=== PATIENT | male | born 1950 | race Caucasian/White ===

== ENCOUNTER 2018-06-18 07:55 | Day surgery (SDC) | payer OTHER ==
[2018-06-14 13:00] VITALS: BP 149/79
[2018-06-14 13:03] LABS: BASOPHILS % (AUTO) 1.2 % (0.0-5.0); EOSINOPHILS % (AUTO) 1.3 % (0.0-8.0); HEMATOCRIT 42.6 % (42-54); LYMPHOCYTES % (AUTO) 31.2 % (21.0-51.0); MEAN CORPUSCULAR HEMOGLOBIN 31.1 pg (27.0-33.0); MEAN CORPUSCULAR HGB CONC 33.9 g/dL (32.0-36.0); MONOCYTES % (AUTO) 8.4 % (3.0-13.0); NEUTROPHILS % (AUTO) 57.9 % (40.0-77.0); NUCLEATED RED BLOOD CELLS 0.1 % (0.0-0.19); PLATELET COUNT (AUTO) 213 K/uL (130-400); RED BLOOD CELL COUNT(AUTO) 4.63 MIL/uL (4.50-6.20); RED CELL DISTRIBUTION WIDTH 13.4 % (11.0-15.5)
[2018-06-14 13:11] LABS: APPEARANCE,URINE Clear (CLEAR); BILIRUBIN,URINE Negative (NEGATIVE); COLOR,URINE Yellow (YELLOW); GLUCOSE, URINE (UA) Negative (NEGATIVE); KETONES,URINE Negative (NEGATIVE); LEUKOCYTE ESTERASE ,URINE Negative (NEGATIVE); NITRATE,URINE Negative (NEGATIVE); OCCULT BLOOD,URINE Negative (NEGATIVE); PH,URINE 5.5 (5.0-8.0); PROTEIN,URINE Negative (NEGATIVE); UROBILINOGEN,URINE 0.2 mg/dL (0.2-1.0)
[2018-06-14 13:14] LABS: CREATININE 1.5 mg/dL (0.5-1.5); POTASSIUM 4.3 mmol/L (3.5-5.1)
[2018-06-14 13:18] LABS: INR 1.02 (0.85-1.15); PARTIAL THROMBOPLASTIN TIME 29.7 SEC (26.3-35.5); PROTHROMBIN TIME 10.7 SEC (9.6-11.6)
[~2018-06-18] VITALS: Ht 172.7 cm; Wt 123.8 kg
[2018-06-18] VITALS (10 sets, daily range): BP systolic 94–144; BP diastolic 48–80
[~2018-06-18 07:55] MED LIST: AEC81 PO; ALPR0.255 PO; ESCI10TA54 PO; EZET1TAB21 PO; LEVO100T12 PO; METO-391 PO; OLME40TA18 PO
[2018-06-18] MEDS ORDERED: SODIUM CHLORIDE 0.9% 1000ML 1,000 ML IV ONE (08:32)
[2018-06-18] MEDS ORDERED: IOHEXOL-350 50ML VIAL IV ONE (10:15)
[2018-06-18] MEDS ORDERED: HEPARIN SODIUM 1000UNIT/ML 10ML VIAL ONE (10:15)
[2018-06-18] MEDS ORDERED: LIDOCAINE HCL-MPF 2% 5ML VIAL ONE (10:15)
[2018-06-18] MEDS ORDERED: NITROGLYCERIN 5 MG/ML 10 ML VIAL IV ONE (10:15)
[2018-06-18] MEDS ORDERED: SODIUM BICARB 50MEQ 50ML VIAL ONE (10:15)
[2018-06-18] MEDS ORDERED: IOHEXOL 350 MG/ML 100ML INFUS..BTL IV ONE ×2 (10:16→10:20)
[2018-06-18] MEDS ORDERED: MEPERIDINE-PF 25 MG/ML SYG ONE (10:39)
[2018-06-18] MEDS ORDERED: MIDAZOLAM HCL 1 MG/ML 2ML VIAL ONE (10:40)
[2018-06-18] MEDS ORDERED: SODIUM CHLORIDE 0.9% 10 ML VIAL IVP SCH (11:15)
[2018-06-18] MEDS ORDERED: ACETAMINOPHEN-CODEINE 300/30MG TAB ONE (13:50)
[2018-06-18] MEDS ORDERED: ACETAMINOPHEN-CODEINE 300/30MG TAB PO SCH (14:00)
== END 2018-06-18 15:30 | disposition home or self-care (01) ==
LOC: DAH 07:55
PROVIDERS: ATTEND Internal Medicine Cardiovascular Disease
DX: I25.119 Atherosclerotic heart disease of native coronary artery with unspecified angina pectoris (principal); Z95.5 Presence of coronary angioplasty implant and graft; Z79.899 Other long term (current) drug therapy; I10 Essential (primary) hypertension; E78.5 Hyperlipidemia, unspecified; E03.9 Hypothyroidism, unspecified; Z82.49 Family history of ischemic heart disease and other diseases of the circulatory system; Z68.42 Body mass index [BMI] 45.0-49.9, adult
CPT/HCPCS: 36415; 71045; 80048; 81003; 85025; 85610; 85730; 93005; 93458; A4606; C1760; C1894; J1644; J2175; J2250; J3490 ×3; J7030; Q9965; Q9967 ×2; 99156; 99157

== ENCOUNTER 2025-05-11 05:56 | Day surgery (SDC) | payer OTHER ==
[2025-05-08 09:03] LABS: IMMATURE GRANULOCYTE ABSOLUTE 0.02 K/uL (0-1); NUCLEATED RED BLOOD CELLS 0.0 % (0.0-0.19); PLATELET COUNT (AUTO) 237 K/uL (130-400); RED BLOOD CELL COUNT(AUTO) 5.08 MIL/uL (4.50-6.20); RED CELL DISTRIBUTION WIDTH 13.1 % (11.0-15.5); WHITE BLOOD COUNT (AUTO) 7.8 K/uL (4.8-10.8)
[2025-05-08 09:05] LABS: APPEARANCE,URINE CLEAR (CLEAR); GLUCOSE, URINE (UA) NEGATIVE (NEGATIVE); LEUKOCYTE ESTERASE ,URINE NEGATIVE Leu/uL (NEGATIVE); NITRATE,URINE NEGATIVE (NEGATIVE); OCCULT BLOOD,URINE NEGATIVE (NEGATIVE)
[2025-05-08 09:06] LABS: ADD UA MICROSCOPIC NO
[2025-05-08 09:10] LABS: CREATININE 1.1 mg/dL (0.5-1.3); GLOMERULAR FILTR. RATE CALC 71.0 mL/min (>90); GLUCOSE,RANDOM 95.0 mg/dL (70-105); SODIUM SERUM 138.0 mmol/L (136-145); UREA NITROGEN, BLOOD 15.0 mg/dL (7-18)
[2025-05-08 09:13] LABS: INR 1.17 (0.85-1.15)
--- NOTE | 2025-05-08 09:14 | EKG ---
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
[2025-05-08 09:22] VITALS: BP 143/89; PULSE 69; RESP 17; TEMP 97.1
--- NOTE | 2025-05-08 13:37 | HMCIMG ---
CHEST 1VW REASON: R COMPARISON: Prior chest radiograph from 06/14/2018 is available. FINDINGS: Single view of the chest was obtained. Lungs are clear. Heart size is normal. There is no pulmonary vascular congestion. Mediastinum and bony thorax appear unremarkable. IMPRESSION: 1. Normal single view chest x-ray.
[2025-05-11] VITALS (31 sets, daily range): BP systolic 66–123; BP diastolic 35–86; PULSE 65–92; RESP 8–26; TEMP 97–97.9
[~2025-05-11] VITALS: Ht 172.7 cm; Wt 102.7 kg
[~2025-05-11 05:56] MED LIST changes: -ALPR0.255 PO; +APIX5TAB PO; -ESCI10TA54 PO; +EZET-82 PO; -EZET1TAB21 PO; -LEVO100T12 PO; +LEVO125C5 PO; +METF-444 PO; +TRAZ-185 PO
--- NOTE | 2025-05-11 06:38 | EKG ---
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
[2025-05-11] MEDS: 0.9%NACL 1000ML 1,000 ML IV SCH (06:48)
--- NOTE | 2025-05-11 07:36 | NUR ---
MARAH STARTED AT THIS TIME BY DR. ZELAYA NAD
--- NOTE | 2025-05-11 07:40 | NUR ---
MARAH DONE AT THIS TIME VSS NAD
--- NOTE | 2025-05-11 07:48 | NUR ---
PT SYNCHRONIZED CARDIOVERTED BY DR ZELAYA 100 JOULES MONOPHASIC MONITOR. PT TOLERATED WELL
--- NOTE | 2025-05-11 07:52 | NUR ---
PT AWAKE NAD SPEAKING WITH STAFF
[2025-05-11] MEDS ORDERED: AMIODARONE 360 MG/200 ML IVPB STA (07:56)
[2025-05-11] MEDS: MIDAZOLAM HCL 1 MG/ML 2ML VIAL IVP ONE ×2 (08:07→08:08)
[2025-05-11] MEDS: MIDAZOLAM HCL 1 MG/ML 2ML VIAL ONE ×2 (08:08→08:09)
[2025-05-11] MEDS: LIDOCAINE HCL 2% VISCOUS 15 ML UDCUP PO ONE (08:54)
[2025-05-11] MEDS ORDERED: AMIODARONE 360MG/200ML BAG 200 ML IV SCH (09:00)
--- NOTE | 2025-05-11 09:13 | NUR ---
PT TO OFFICE CLEANER AT THIS TIME ON AMIODARONE BOLUS WITH 2 RNS
[2025-05-11] MEDS ORDERED: LIDOCAINE HCL 400MG/20ML VIAL ONE (09:26)
[2025-05-11] MEDS ORDERED: SODIUM BICARB 50MEQ 50ML VIAL 50 ML ONE (09:27)
[2025-05-11] MEDS ORDERED: HEParin-NS 1,000 UNIT/500 ML 1,000 ML IV ONE (09:27)
[2025-05-11] MEDS ORDERED: NITROGLYCERIN 50MG VIAL ONE (09:27)
[2025-05-11] MEDS ORDERED: IOHEXOL 350 MG/ML 100ML INFUS..BTL IV ONE (09:27)
[2025-05-11] MEDS ORDERED: MIDAZOLAM HCL 1 MG/ML 2ML VIAL ONE ×3 (09:42→09:54)
--- NOTE | 2025-05-11 10:48 | NUR ---
Amiodarone infusion initated pre laboratory associate procedure as ordered. VS wnl. Cardiac alarms intact.
[2025-05-11] MEDS ORDERED: DEXTROSE 50%-WATER 50 ML DISP.SYRIN IV PRN (11:00)
[2025-05-11] MEDS ORDERED: 0.9%NACL 1000ML 1,000 ML IV SCH (11:00)
--- NOTE | 2025-05-11 11:03 | CCATH ---
PROCEDURE NOTE PROCEDURES: * Left heart cath. * Selective diagnostic right and left coronary arteriogram. * Conscious sedation for 30 minutes. INDICATIONS: * Known history of coronary artery disease. * Cardiomyopathy. * Status post remote coronary artery stenting. * Atrial flutter. COMPLICATIONS: None. TOTAL CONTRAST: 50 mL. APPROACH: Attempted right radial approach; cannulated the radial artery on four separate times and was not able to advance the wire, so we were able to switch to a femoral right approach. DESCRIPTION OF PROCEDURE: The patient was taken to the cardiac catheterization lab after appropriate operative consents were signed. He was prepped and draped in the usual fashion. After conscious sedation was administered, the right common femoral artery was accessed utilizing ultrasound guidance. A 6-Setswana sheath was advanced in a retrograde fashion by the modified Seldinger technique. At this point, a 6-Setswana FR4 diagnostic catheter was advanced over an indwelling J-wire. This was placed in the left ventricular cavity. Left ventricular end-diastolic pressure measurement was obtained. Ventriculography was deferred. The patient had an LVEDP of 22. EF was 40% by noninvasive studies. Pull back revealed no aortic stenosis. The catheter was then engaged in the ostium of the right coronary artery. This was imaged in multiplane. This was a moderately sized vessel that had a stent that was patent in its mid segment. The right coronary artery gave rise to an acute marginal PDA and PLVB. There was evidence of minor luminal irregularities. The distal PDA and PLVB were small. The catheter was then withdrawn and FL4 6-Setswana catheter was advanced and selectively engaged in the ostium of the left main. Imaging was obtained in multiplane. The left main was a moderately sized vessel. There was fear of significant stenosis. It trifurcated into the LAD, intermediate, and circumflex. The LAD was a moderately sized vessel that gave rise to several diagonals and septal perforators. There were minor luminal irregularities with no significant stenotic lesions. The intermediate, a small vessel, was free of disease. Circumflex coronary artery was a moderately large vessel that gave rise to a large branching obtuse marginal 1 ongoing circ with a distal large OM and a small PLVB equivalent vessel. The circ system had minor luminal irregularities and no significant stenotic lesions. At this point, the procedure was completed, percutaneous closure device was utilized with good hemostasis. The patient tolerated the procedure well and left the cardiac catheterization lab in stable condition. FINAL IMPRESSION: 1. Patent coronary artery stent in the right coronary artery. 2. No significant stenotic lesions with minor diffuse luminal irregularities and small caliber distal vessels. 3. No aortic stenosis. 4. Elevated left ventricular end-diastolic pressure. PLAN: Continue to optimize medical management and evaluation for Electrophysiology management. TID: [id number] RECEIPT: [id number]
[2025-05-11] MEDS ORDERED: AMIO400T4 PO (12:39)
--- NOTE | 2025-05-11 13:55 | NUR ---
Femoral dressing clean, dry and intact. No bleeding, bruising or issue. No evidence of hematoma. Educated Patient of importance of not bending right leg and POC until discharge. Voiced understanding in full. HOB at 25'. Call light in reach. Sr's up x 2. Reported off in full to Anthony MARY
[2025-05-11] MEDS ORDERED: AMIODARONE 540 MG/D5W 300ML (0.5MG/MIN) IV SCH (15:00)
--- NOTE | 2025-05-12 09:00 | EKG ---
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
--- NOTE | 2025-05-13 07:31 | HMCSR ---
APPROVED REPORT EXAM: Transesophageal echocardiogram with color flow Doppler. INDICATION ICD: I48.92 Unspecified atrial flutter Reason For Test : Rule out Intracardiac Thrombus. PROCEDURE After obtaining informed consent, patient underwent transesophageal echo in the Day Patient Room 14 . 15 mL 2% Viscous Lidocaine was given as a topical anesthetic prior to the administration of the consc ious sedation. Type of Sedation: Conscious Sedation Sedation was administered by Rodger Swanson RN. Sedation was achieved with refer to chart intravenously. Transesophageal probe was inserted and advanced into esophagus without difficulty by Dr. Eckert. MARAH was performed and images were obtained, probe was removed without complications. Prior to cardioversion, refer to chart of was administered. Synchronized Cardioversion attempted: Successful Synchronized Cardioversion acheived with 100 Joules after 1 attempt(s). Rhythm following Synchronized Cardioversion: Normal Sinus Rhythm Throughout the procedure, the blood pressure, pulse oximetry, cardiac rhythm, and rate were monitored . The patient tolerated the procedure without adverse effects. Recovery from conscious sedation was une ventful and vital signs were stable. Left Ventricle Left ventricular cavity size is normal. There is normal left ventricular wall thickness. LVEF is 45-5 0%. Right Ventricle The right ventricle is normal size. Atria The left atrium size is normal. No thrombus is visualized in the left atrial appendage. No evidence o f PFO by color flow Doppler. The right atrium size is normal. Aortic Valve The aortic valve is normal in structure and function. No aortic regurgitation is present. There is no aortic valvular stenosis. Mitral Valve The mitral valve is normal in structure. Mitral regurgitation is mild. There is no mitral valve steno sis. Tricuspid Valve The tricuspid valve is normal in structure. There is mild tricuspid valve regurgitation noted. Pulmonic Valve The pulmonary valve is normal in structure and function. There is no pulmonic valvular regurgitation. Great Vessels The aortic root is normal in size. Pericardium No pericardial effusion. Conclusion Left ventricular cavity size is normal. LVEF is 45-50%. The right ventricle is normal size. The left atrium size is normal. No thrombus is visualized in the left atrial appendage. No evidence of PFO by color flow Doppler. The aortic valve is normal in structure and function. The mitral valve is normal in structure. Mitral regurgitation is mild. There is no mitral valve stenosis. There is mild tricuspid valve regurgitation noted. The aortic root is normal in size. No pericardial effusion.
== END 2025-05-11 16:24 | disposition home or self-care (01) ==
LOC: DAH 05:56
PROVIDERS: ATTEND Internal Medicine Cardiovascular Disease
DX: I48.92 Unspecified atrial flutter (principal); I08.1 Rheumatic disorders of both mitral and tricuspid valves; I25.118 Atherosclerotic heart disease of native coronary artery with other forms of angina pectoris; I13.0 Hypertensive heart and chronic kidney disease with heart failure and stage 1 through stage 4 chronic kidney disease, or unspecified chronic kidney disease; I50.42 Chronic combined systolic (congestive) and diastolic (congestive) heart failure; N18.30 Chronic kidney disease, stage 3 unspecified; R94.31 Abnormal electrocardiogram [ECG] [EKG]; I25.2 Old myocardial infarction; E78.5 Hyperlipidemia, unspecified; E03.9 Hypothyroidism, unspecified; Z95.5 Presence of coronary angioplasty implant and graft; Z79.01 Long term (current) use of anticoagulants; Z79.899 Other long term (current) drug therapy
CPT/HCPCS: 80048; 83880; 85025; 85610; 85730; 81003; 36415; 71045; 93458; 99156; 99157 ×3; 82948; 93325; 93312; 93005 ×2; C1894 ×3; C1760 ×2; Q9965; J3010 ×3; J3490 ×4; J7030; J1644 ×2; J2250 ×6; J7060; J2704; J0282; Q9967; A4615; A4215; A4657; A4222; A4221; A4663; A4216; A4606; A4223 ×3; J0283; 96360; 96361; J2312